=== PATIENT | female | born 1955 | race Caucasian/White ===

== ENCOUNTER 2022-03-15 11:34 | Emergency (ER) | payer MEDICARE, BC ==
[~2022-03-15] VITALS: Ht 157.5 cm; Wt 89.8 kg
[2022-03-15] MEDS ORDERED: CRUTCH4 XX (15:47)
[2022-03-15] MEDS ORDERED: HYDR1TAB94 PO (15:47)
== END 2022-03-15 16:02 | disposition home or self-care (01) ==
LOC: ER 11:34
DX: M76.62 Achilles tendinitis, left leg (principal); M76.61 Achilles tendinitis, right leg; E11.9 Type 2 diabetes mellitus without complications; Z88.8 Allergy status to other drugs, medicaments and biological substances; Z91.09 Other allergy status, other than to drugs and biological substances; Z91.048 Other nonmedicinal substance allergy status
CPT/HCPCS: 73630; 76882; 93971; 96372; 99284-25; J1885

== ENCOUNTER 2022-04-13 06:09 | Day surgery (SDC) | payer MEDICARE, BC ==
[~2022-04-13] VITALS: Ht 157.5 cm; Wt 90.1 kg
[~2022-04-13 06:09] MED LIST: CRUTCH4 XX; HYDR1TAB94 PO
[2022-04-13] MEDS ORDERED: PANT20 (06:51)
[2022-04-13] MEDS ORDERED: METF500 (06:51)
[2022-04-13] MEDS ORDERED: AMARYL1 M1 (06:51)
[2022-04-13] MEDS ORDERED: ROSU10TA (06:52)
[2022-04-13] MEDS ORDERED: LOSA25 PO (06:52)
--- NOTE | 2022-04-13 07:15 | NUR ---
04/13/22 0715 GALA QUARLES 0.15MG OF EPI (1MG/1ML) ADDED TO 30MLS OF ROPIVACAINE 0.2% TO CREATE A LOCAL SOLUTION OF ROPIVACAINE 0.2% WITH EPI 1:200,000. 30MLS OF LOCAL POURED ONTO STERILE FIELD FOR USE DURING CASE.
--- NOTE | 2022-04-13 07:24 | NUR ---
04/13/22 0724 PIPO TRINIDAD BETADINE SKIN TEST @ 1292
--- NOTE | 2022-04-13 09:58 | NUR ---
04/13/22 0958 Liyah Haywood PT. DOSING, MOANING LESS. SATS DOWN TO 87% ON RA, PT. ENC. TO TAKE DEEP BREATHS. SATS BACK UP TO 100%.
== END 2022-04-13 11:39 | disposition home or self-care (01) ==
LOC: ORSCSDS 06:09
PROVIDERS: Podiatrist Foot & Ankle Surgery
PROC: 0QBL0ZZ Excision of Right Tarsal, Open Approach (ICD-10-PCS; principal; 2022-04-13 07:30)
PROC: 0L8N0ZZ Division of Right Lower Leg Tendon, Open Approach (ICD-10-PCS; principal; 2022-04-13 07:30)
DX: M65.28 Calcific tendinitis, other site (principal); I10 Essential (primary) hypertension; E11.9 Type 2 diabetes mellitus without complications; K21.9 Gastro-esophageal reflux disease without esophagitis; Z79.84 Long term (current) use of oral hypoglycemic drugs; Z79.899 Other long term (current) drug therapy; E66.9 Obesity, unspecified; Z68.36 Body mass index [BMI] 36.0-36.9, adult
CPT/HCPCS: 82947; A9270; C1713; J0171; J0690; J1100; J1170; J1885; J2405; J2704; J2795; J3010; J7120

== ENCOUNTER → 2025-01-14 | Outpatient (CLI) | payer MEDICARE, BC ==
[~2025-01-14] MED LIST changes: +AMARYL1 M1; +LOSA25 PO; +METF500; +PANT20; +ROSU10TA
[2025-01-14 16:18] LABS: BASOPHILS ABSOLUTE AUTO 0.04 K/mm3 (0.00-0.23); BASOPHILS PERCENT AUTO 1 % (0-2); EOSINOPHILS ABSOLUTE AUTO 0.18 K/mm3 (0.00-0.68); EOSINOPHILS PERCENT AUTO 3 % (0-6); Hematocrit 39.2 % (33.0-51.0); Hemoglobin 13.1 g/dL (11.5-16.0); IMMATURE GRAN ABSOLUTE AUTO 0.01 K/mm3 (0.00-0.10); IMMATURE GRAN PERCENT AUTO 0 % (0-1); LYMPHOCYTES ABSOLUTE AUTO 2.79 K/mm3 (0.84-5.20); LYMPHOCYTES PERCENT AUTO 38 % (21-46); MONOCYTES ABSOLUTE AUTO 0.73 K/mm3 (0.16-1.47); MONOCYTES PERCENT AUTO 10 % (4-13); Mean Corpuscular HGB Conc 33.4 g/dL (31.5-36.5); Mean Corpuscular Volume 90 fL (80-100); Mean Platelet Volume 10.5 fL (9.1-12.4); NEUTROPHILS ABSOLUTE AUTO 3.57 K/mm3 (1.96-9.15); NEUTROPHILS PERCENT AUTO 49 % (41-73); Platelet Count 221 K/mm3 (150-400); RDW Coefficient Variation 13.3 % (11.7-14.2); Red Blood Cell Count 4.37 M/mm3 (3.80-5.20); White Blood Cell Count 7.32 K/mm3 (4.00-11.30)
[2025-01-14 16:30] LABS: CHOL/HDL RATIO 4.3; Cholesterol 230 mg/dL (50-200); HDL Cholesterol 54 mg/dL (>39); Triglycerides 555 mg/dL (30-160); Very Low Density Lipoprot Chol Unable to Calculate mg/dL (6-32)
[2025-01-14 16:36] LABS: LDL/HDL RATIO Unable to Calculate; Low Density Lipoprotein Chol Unable to Calculate mg/dL (0-110)
[2025-01-14 17:02] LABS: LDL Direct Measurement 114 mg/dL (0-130)
[2025-01-14 17:27] LABS: Bacterial Vaginosis PCR Negative (NEGATIVE); Candida Group, PCR DETECTED (NOT DETECT); Candida glabrata-krusei, PCR NOT DETECTED (NOT DETECT)
== END ==
LOC: LAB 14:11 → LAB SHORT 14:11
PROVIDERS: Nurse Practitioner Family
DX: E03.9 Hypothyroidism, unspecified (principal); E78.2 Mixed hyperlipidemia; N95.2 Postmenopausal atrophic vaginitis; Z79.899 Other long term (current) drug therapy
CPT/HCPCS: 80061; 81515; 82607; 82746; 83721; 84443; 85025